=== PATIENT | male | born 2000 | race Caucasian/White ===

== ENCOUNTER 2018-07-10 15:48 | Emergency (ER) | payer MEDICAID ==
--- NOTE | 2018-07-10 15:56 | EDPHY ---
H & P Time Seen by Provider: 07/10/18 15:53 HPI/ROS: CHIEF COMPLAINT: Skateboard accident HISTORY OF PRESENT ILLNESS: Patient is a 17-year-old male presents emergency department after crashing on his skateboard. Patient states he was [place] got going too fast. He fell forward striking his chin on the pavement. He did not lose consciousness. Denies headache or neck pain. Patient states he feels as though he has an isolated chin laceration. He has no jaw pain. His teeth come together normally with a normal bite. Patient has no chest pain or shortness of breath. No abdominal pain. REVIEW OF SYSTEMS: My complete review of systems is negative except as mentioned in the HPI. ( Marti Navarro) Past Medical/Surgical History: Denies Social history: The patient smokes marijuana. His last use was 6 hr ago. Patient was the homeless detention. (Marti Navarro) Physical Exam: Vitals noted GENERAL: Well-appearing, in no acute distress, alert. HEAD: No evidence of trauma. EYES: PERRLA, EOMI, normal to inspection. ENT: Patient has a 3 cm horizontal laceration on his chin. Airway intact, no dental or oral injury, no malocclusion, no hemotympanum. NECK: The trachea is midline. There is no crepitus. The C-spine is nontender. NEXUS criteria is negative (no midline tenderness, no distracting injury, no altered mental status, no recent alcohol use, no focal neurologic deficit). RESPIRATORY: Clear to auscultation bilaterally, no rales, rhonchi or wheezing. There is no crepitus or palpable rib fractures. CVS: Regular rate and rhythm, no rubs, murmurs, or gallops. ABDOMEN: Soft, nontender, nondistended, normal bowel sounds, no bruising or abrasions. Pelvis: Stable. No tenderness palpation. Hips full range of motion. BACK: Normal to inspection, no spinal tenderness, no spinal step off, no notable bruising or abrasions. SKIN: Normal color, warm, dry. No pallor or diaphoresis. EXTREMITIES: Right upper extremity: Patient has abrasions on his hand. No bony tenderness to palpation. Neurovascular intact distally. Left upper extremity: Patient has abrasion on his hand. No bony tenderness to palpation. Neurovascular intact distally. Right lower extremity: Knee abrasion. No tenderness palpation. Neurovascular intact distally. Left lower extremity: Knee abrasion. No tenderness palpation. Neurovascular intact distally. NEURO/PSYCH: Alert and oriented x 3, GCS 15, normal mood and affect, normal motor sensory exam. (Marti Navarro) Constitutional: Initial Vital Signs Temperature (C) 36.5 C 07/10/18 15:57 Heart Rate 68 07/10/18 15:57 Respiratory Rate 16 07/10/18 15:57 Blood Pressure 101/70 07/10/18 15:57 O2 Sat (%) 94 07/10/18 15:57 O2 Delivery Mode Room Air Medical Decision Making Procedures: Procedure: Laceration repair. I was requested by Dr. Navarro to perform wound closure I explained the indications, risks and benefits for both laceration repair and anesthetic administration. Verbal consent was obtained from the patient. The laceration on the chin was anesthetized using 0.5% bupivicaine with epinephrine. After anesthetic administered the patient was observed for a period of time and had no apparent adverse effects. The wound was cleaned, prepped, draped in normal sterile fashion and explored to its base. No foreign body seen, no foreign bodies palpated. The wound was repaired with 10 simple interrupted 6 0 Prolene sutures. The wound repair was complex. The procedure was performed by myself. Patient has been informed that scarring will occur, although efforts have been made to minimize this. (Corazon Carcamo) ED Course/Re-evaluation: I met EMS on arrival. I took report from the speech teacher. In the emergency department I discussed possible etiologies with the patient. I answered all his questions. Patient had his wound anesthetized, cleaned and repaired. Please refer to the PAs note. I rechecked the patient after repair. He was doing well. GCS was 15. He had no new complaints. Patient was given wound care instructions. He is given warnings prior to leaving. He will return with worsening symptoms. (Marti Navarro) Differential Diagnosis: My differential includes but not limited to chin laceration, chin contusion, jaw fracture, dental injury, spinal injury, closed-head injury, subarachnoid hemorrhage, subdural hematoma, epidural hematoma (Marti Navarro) Departure - Departure Disposition: Home, Routine, Self-Care Clinical Impression: Chin laceration Qualifiers: Encounter type: initial encounter Qualified Code(s): S01.81XA - Laceration without foreign body of other part of head, initial encounter Abrasion hand Qualifiers: Encounter type: initial encounter Laterality: unspecified laterality Qualified Code(s): S60.519A - Abrasion of unspecified hand, initial encounter Condition: Good Instructions: Care For Your Stitches (ED), Laceration (ED), Abrasion (ED) Additional Instructions: Have your sutures removed in 5-7 days in the emergency department. This is included in your service. Return with increasing pain, difficulty with her bite , neck pain or any other concerns. Referrals: [facility],. [Clinic] - As per Instructions
[2018-07-10 15:59] VITALS: BP 101/70
[2018-07-10] MEDS ORDERED: LET GEL TOPICAL 1 EA SYR TP ONE (16:17)
== END 2018-07-10 17:08 | disposition home or self-care (01) ==
PROC: 0HQ1XZZ Repair Face Skin, External Approach (ICD-10-PCS; principal; 2018-07-10)
DX: S01.81XA Laceration without foreign body of other part of head, initial encounter (principal); S80.219A Abrasion, unspecified knee, initial encounter; V00.131A Fall from skateboard, initial encounter; Y93.51 Activity, roller skating (inline) and skateboarding